=== PATIENT | female | born 1990 | race Caucasian/White ===

== ENCOUNTER 2019-03-27 20:59 | Emergency (ER) | payer MEDICAID, SELFPAY ==
[2019-03-27 21:04] VITALS: BP 132/101; PULSE 94; RESP 18; TEMP 37.8; O2SAT 100
--- NOTE | 2019-03-27 21:22 | ED.GENADUL_ITS ---
Discharge Plan Disposition Patient Disposition: HOME Condition: Good Discharge Details Chief Complaint: DentalOral Clinical Impression: Abscess, dental Primary Care Provider: TESS RENTERIA ED Provider: Jaylon Beverly Home Meds and New Rx's Prescriptions: New clindamycin HCl 150 mg capsule 450 mg PO QID 5 Days Qty: 60 RF: 0 Discontinued clindamycin HCl 300 mg Capsule 300 mg PO Q6H RF: 0 No Action acetaminophen [Tylenol] 325 mg Tablet 975 mg PO PRN PRNRF: 0 ibuprofen 200 mg Tablet 600 mg PO PRN PRNRF: 0 Discharge Instructions Instructions: Dental Abscess (ED) Additional Instructions: At this time your abscess has been drained. Please take 1000 mg of Tylenol every 6 hours and 800 mg of ibuprofen every 6 hours to help with the pain. I have written you a new prescription for clindamycin, and for the next 5 days p lease take 450 mg 4 times a day. Please follow-up closely with your dentist. If you notice any worsening of your symptoms, or any new symptoms such as vomiting, diarrhea, fever, chills, shortness of breath, chest pain, numbness, weakness, or fainting , please return immediately to the emergency department for reevaluation. As always, it was a pleasure participating in your medical care today. Referrals: TESS RENTERIA [Primary Care Provider] - Medical Decision Making This is a pleasant 28-year-old female who presents with right lower dental pain and swelling. She has been having right lower tooth pain over tooth 30 for the last week. She went to see a dentist and was started on clindamycin 5 days ago. Since then she has noticed mild to moderate swelling of the right lower jaw, notably worsened over the last 24 hours. She denies fever chills but she has borderline temperature today. Exam demonstrates notable swelling around tooth 30, as well as abscess with fluctuance. CT scan was performed earlier today at [facility] emergency department. Per the patient the results were unremarkable. We will attempt to get these results. At this time she demonstrates signs and symptoms consistent with a notable periapical abscess with surrounding swelling. Will perform I&D, dental block, and reassess. 9:[address] report from [facility] shows no evidence of abscess at that time, and certainly no extravasation to the neck. Exam here does demonstrate swelling and evidence of an abscess. Dental block was performed, the area was I&D and a notable copious amount of pus was removed. We will change her clindamycin dose to 450 mg 4 times a day for the next 5 days for the remainder of her course. Recommend continued close follow-up with her dentist for tooth removal. Discussed red flags which to return. I have extensively reviewed the treatment plan and discharge instructions with the patient. I have addressed all patient concerns at this time. The patient was made aware of what symptoms to monitor for that would warrant a return to the emergency department. Discussed the plan with the patient, they demonstrate verbal understanding and agreement with our assessment and plan at this time. Time out was taken to identify the correct patient, procedure, and site. Risks and benefits were discussed with the patient and consent was obtained. Direct pressure was held over the area prior to the procedure to reduce painful injection. Lidocaine 1% 5ml was instilled into the right posterior inferior alveolar nerve area as well as around the tooth over the painful tooth on the buccal aspect with a 27 gauge needle. Moderate analgesia was obtained. The abscess was then incised with a 1 cm incision with an 11 blade and a moderate amount of pus and blood returned. The patient tolerated the procedure. There were no complications. HPI General Date/Time Provider Initiated Documentation: 03/27/19 21:03 . HPI Narrative: This is a 28-year-old female with no significant past medical history who presents today for right lower dental pain. And swelling. Patient states that over the last few days she has had notable dental carry that has been assessed and evaluated by dentist, she is scheduled to have the tooth removed in the coming weeks. She was started on clindamycin by her dentist 5 days ago, and since then she has noted increased swelling in her right lower jaw at the site of the tooth. It is notably increased over the last 24 hours though. She Did go to [facility] emergency department earlier today, had a CT scan which she reports was unremarkable. She was discharged home. Since then the swelling has continued in conjunction with the pain. She denies fever chills however her temperature is borderline here today. She denies any headache or posterior neck pain. She denies any significant difficulty swallowing. She denies any complications tolerating her oral secretions. No other complaints at this time. No other modifying factors. Related Data Home Medications Medication Instructions Recorded Confirmed acetaminophen [Tylenol] 975 mg PO PRN PRN 03/27/19 03/27/19 clindamycin HCl 450 mg PO QID 5 Days #60 cap 03/27/19 ibuprofen 600 mg PO PRN PRN 03/27/19 03/27/19 Previous Rx's Medication Instructions Recorded clindamycin HCl 450 mg PO QID 5 Days #60 cap 03/27/19 Allergies Allergy/AdvReac Type Severity Reaction Status Date / Time Penicillins Allergy Intermediate Hives Unverified 03/27/19 21:08 General Stated Complaint: DentalOral GUANACO: 3 Review of Systems All systems reviewed & are unremarkable except as noted in HPI and below PFSH Social History Smoking/Tobacco Use Status: Current every day Tobacco Type: cigarettes Alcohol Intake: never Drug use: Socially Substance use type: marijuana Do you feel safe at home: Yes Do you feel safe in your relationship?: Yes Exam Narrative Exam Narrative: 1.Const: Well-nourished, Well-developed, appearing stated age 2.Eyes: PERRL, no conjunctival injection, and symmetrical lids. 3.ENT: Atraumatic external nose and ears. Moist MM. Neck: Symmetric, trachea midline, No thyromegaly. Notable swelling in the right lower jaw around tooth 30. No extension into the neck. No evidence of Benji's angina. No signs of airway compromise, no peritonsillar abscess or swelling. Patient demonstrates good movement of cervical neck. There is no nuchal rigidity, no nuchal ten derness. Patient is able to flex the neck without any difficulty or significant pain. Negative Kernig's and Brudzinski sign. 4.CVS: +S1/S2, No murmurs or gallops. Peripheral pulses 2+ and equal in all extremities. Brisk capillary refill in all extremities. 5.RESP: Unlabored respiratory effort. Clear to auscultation bilaterally. No wheezes rales or rhonchi 6.GI: Soft, Nontender/Nondistended, No hepatosplenomegaly. No guarding or rebound. 7.MSK: Normocephalic/Atraumatic, Extremities w/o deformity or ttp No cyanosis or clubbing, Normal movement of all extremities 8.Skin: Warm, Dry. No rashes or lesions. 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 Sensation grossly intact, no focal neurologic deficits. 10.Psych: (AAO) x3. Appropriate mood and affect Course Vital Signs Vital signs: Vital Signs Temperature 37.8 C H 03/27/19 21:04 Pulse 94 H 03/27/19 21:04 Respiratory Rate 18 03/27/19 21:04 Blood Pressure 132/101 H 03/27/19 21:04 Pulse Oximetry 100 03/27/19 21:04 Temperature 37.8 C H 03/27/19 21:04 Temperature Source Skin 03/27/19 21:04 Pulse 94 H 03/27/19 21:04 Respiratory Rate 18 03/27/19 21:04 Respiratory Effort Non-Labored 03/27/19 21:12 Blood Pressure 132/101 H 03/27/19 21:04 Blood Pressure Position Sitting 03/27/19 21:04 Pulse Oximetry 100 03/27/19 21:04 Oxygen Delivery Method Room Air 03/27/19 21:04 Oxygen Flow Rate 0 03/27/19 21:04 Pain Level 10 03/27/19 21:04
[2019-03-27] MEDS: Bupivacaine 0.5% Pres-Free 30 ML VIAL (21:23)
[2019-03-27] MEDS: Ibuprofen 800 MG TAB PO (21:57)
[2019-03-27 21:58] VITALS: BP 127/64; PULSE 89; RESP 18; O2SAT 98
== END 2019-03-27 21:55 | disposition home or self-care (01) ==
PROVIDERS: Emergency Provider Student in an Organized Health Care Education/Training Program; PCP Nurse Practitioner Family
DX: R68.84 Jaw pain (principal); K04.7 Periapical abscess without sinus
CPT/HCPCS: 41800

== ENCOUNTER 2019-04-10 12:40 | Outpatient (REF) | payer MEDICAID, SELFPAY ==
--- NOTE | 2019-04-10 11:30 | PAPFT_PTH ---
PATIENT: Daniella Eagle LOC: [facility] U#:[id number] AGE/SX: 28/F ROOM: RE04/10/[address]: Chantel Cameron : 1990 BED: DIS: 04/10/2019 SPEC #: [id number] RECD: 04/13/19 12:58 STATUS: MAYELIN VILLEGAS #: [id number] KIRSTEN: 04/10/19 11:[address]: Chantel Nguyen DEPT: [facility] Cytology RECD BY: Mariama Bone Tissues: 1 - CX/ENDOCX FOR PAP SMEARS Procedures: PAP THIN PREP/[facility] Screening Comments: [id number]
== END 2019-04-10 13:00 ==
LOC: NCHCN 12:40
PROVIDERS: PCP Nurse Practitioner Family; Visit Provider Nurse Practitioner Family
DX: Z12.4 Encounter for screening for malignant neoplasm of cervix (principal)
CPT/HCPCS: 88142

== ENCOUNTER 2022-08-14 12:47 | Outpatient (REF) | payer MEDICAID, SELFPAY ==
--- NOTE | 2022-08-14 10:45 | PAPFT_PTH ---
PATIENT: Daniella Eagle LOC: [facility] U#:[id number] AGE/SX: 31/F ROOM: RE08/14/[address]: Chantel Cameron : 1990 BED: DIS: 08/14/2022 SPEC #: [id number] RECD: 08/15/22 11:05 STATUS: MAYELIN REOksana #: [id number] KIRSTEN: 08/14/22 10:[address]: Chantel Nguyen DEPT: [facility] Cytology RECD BY: Mariama Bone Tissues: 1 - CX/ENDOCX FOR PAP SMEARS Procedures: PAP THIN PREP/[facility] Screening Comments: [id number]
== END 2022-08-14 12:48 | disposition home or self-care (01) ==
LOC: NCHCN 12:47
PROVIDERS: PCP Nurse Practitioner Family; Visit Provider Nurse Practitioner Family
DX: Z12.4 Encounter for screening for malignant neoplasm of cervix (principal)
CPT/HCPCS: 88142

== ENCOUNTER 2023-01-01 12:44 | Outpatient (REF) | payer MEDICAID, SELFPAY ==
--- NOTE | 2023-01-01 12:00 | SKI_PTH ---
PATIENT: Daniella Eagle LOC: [facility] U#:[id number] AGE/SX: 32/F ROOM: RE01/01/[address]: Chantel Cameron : 1990 BED: DIS: 01/01/2023 SPEC #: [id number] RECD: 01/02/23 12:44 STATUS: MAYELIN HENRY #: [id number] KIRSTEN: 01/01/23 12:[address]: Chantel Nguyen DEPT: Surgical Specimen RECD BY: Mariama Bone Tissues: 1 - SKIN BIOPSY(SHAVE/PUNCH) 2 - SKIN BIOPSY(SHAVE/PUNCH) Procedures: SKIN LEVEL 4 Comments: [id number]
== END 2023-01-01 12:45 | disposition home or self-care (01) ==
LOC: NCHCN 12:44
PROVIDERS: PCP Nurse Practitioner Family; Visit Provider Nurse Practitioner Family
DX: D22.5 Melanocytic nevi of trunk (principal)
CPT/HCPCS: 88305